=== PATIENT | male | born 1965 | race Caucasian/White ===

== ENCOUNTER → 2020-11-28 11:35 | Outpatient (BNVA) | payer OTHER, SELFPAY | PROVIDERS: Visit Provider Internal Medicine | DX: Z20.822 Contact with and (suspected) exposure to COVID-19 (principal) | CPT/HCPCS: 87635 ==

== ENCOUNTER 2020-12-05 07:41 | Day surgery (SDC) | payer OTHER, SELFPAY ==
[2020-12-03 13:00] VITALS: BMI 22.7
[2020-12-05 07:58] VITALS: BP 119/82; PULSE 84; RESP 16; TEMP 36.6; O2SAT 99
[2020-12-05] MEDS: sodium chloride 0.9% 1,000 ML 30 ML IV (08:15)
--- NOTE | 2020-12-05 08:17 | ANES.PREANE2 ---
Pre-Anesthetic Assessment Pre-Anesthetic Assessment: Height/Weight: Height 1.8 m Weight 73.936 kg Temp Pulse Resp BP Pulse Ox 97.9 F 84 16 119/82 99 12/05/20 07:58 12/05/20 07:58 12/05/20 07:58 12/05/20 07:58 12/05/20 07:58 Proposed Procedure: Operation Date: 12/05/20 09:00 Proposed Procedures p Colonoscopy G0121 Z12.11(Not Applicable) - Walker Arrieta MD Last intake: Intake Last Liquid Date 12/04/20 Last Liquid Time 22:00 Last Solid Date 12/03/20 Last Solid Time 18:00 Social: Social History: No alcohol and No tobacco Exam: Pre-Anes Outpt Exam: alert and oriented x 3 Airway: Submandibular: WNL Cervical ROM: WNL MP: 1 History/ROS: No significant history except as noted Anesthetic Plan: ASA status: 1 Anesthesia: Anesthesia Evaluation and MAC Meds/Allergies Current Medications: Current Medications Generic Name Dose Route Start Last Admin Trade Name Freq PRN Reason Stop Dose Admin Sodium Chloride 1,000 mls @ 30 ml s/hr 12/05/20 08:00 12/05/20 08:15 Sodium Chloride 0.9% IV 12/06/20 07:59 30 mls/hr .Q24H GURDEEP Administration PFSH Anesthesia PFSH: Family History Father Cancer Heart disease Social History Smoking and tobacco status: never smoked Alcohol intake: former Marital status: Number of children: 2 service: No History of recent travel: No Data Anesthesia Cardiac Studies: No Data to Display
--- NOTE | 2020-12-05 09:08 | W.PM.OPSUD ---
Surgery/Procedure H&P Update DATE OF PROCEDURE: December 05, 2020 DATE H&P PERFORMED: 11/19/20 PREOP DIAGNOSIS: k PLANNED PROCEDURE: Operation Date: 12/05/20 09:00 Proposed Procedures p Colonoscopy G0121 Z12.11(Not Applicable) - Walker Arrieta MD
[2020-12-05 09:29] VITALS: BP 90/57; PULSE 91; RESP 16; TEMP 36.8; O2SAT 97
[2020-12-05 09:48] VITALS: BP 91/63; PULSE 80; RESP 16; TEMP 36.9; O2SAT 97
--- NOTE | 2020-12-05 11:56 | ANE.PACU2 ---
Inpatient post-anesthesia follow up: Airway intact: Yes Vital signs: Temperature 98.4 F Pulse Rate 80 Respiratory Rate 16 Blood Pressure 91/63 Pulse Oximetry 97 Oxygen Delivery Me thod Room Air Oxygen Flow Rate Fraction of Inspir ed Oxygen Hydration adequate: Yes Nausea and vomiting: No Pain level: 1 Mental status: Baseline
== END 2020-12-05 10:51 | disposition home or self-care (01) ==
PROVIDERS: Visit Provider Internal Medicine
PROC: 0DJD8ZZ Inspection of Lower Intestinal Tract, Via Natural or Artificial Opening Endoscopic (ICD-10-PCS; CPT 45378; principal; 2020-12-05 09:00)
DX: Z12.11 Encounter for screening for malignant neoplasm of colon (principal)
CPT/HCPCS: 45378; 96360; 96361; J2704; J7030